=== PATIENT | female | born 2000 | race Caucasian/White ===

== ENCOUNTER 2019-12-13 02:40 | Emergency (ER) | payer OTHER, SELFPAY ==
--- NOTE | ~2019-12-13 | XR_ITS ---
XR ankle RT min 3V DATE: 12/13/2019 03:06 INDICATION: Pain and swelling after falling downstairs TECHNIQUE: 3 views COMPARISON: None FINDINGS: There is prominent lateral soft tissue swelling of the ankle. Os subfibular artery is noted . No fracture or dislocation of the ankle or disruption of the ankle mortise is detected. IMPRESSION: Lateral soft tissue swelling Reviewed, dictated and finalized at location A.
[2019-12-13 02:45] VITALS: BP 127/82; PULSE 102; RESP 18; TEMP 36.7; O2SAT 98
--- NOTE | 2019-12-13 02:56 | ED_ITS ---
HPI - Extremity Injury (Lower) General Chief Complaint: Extremity Injury, Lower Stated Complaint: ankle pain Time Seen by Provider: 12/13/19 02:52 History of Present Illness HPI Narrative: 19 yo female presents from home for an ankle injury. About 1 hour ago she was going down the stairs when she slipped and twisted her right ankle. She had instant pain in the lateral ankle. She tried ice, ibuprofen and elevation without relief. The ankle continued to swell so she decided to come have it evaluated. Related Data Allergies Allergy/AdvReac Type Severity Reaction Status Date / Time No Known Allergies Allergy Mild Unverified 12/07/08 18:06 No Known Allergies Allergy Mild Uncoded 12/23/18 11:14 Review of Systems Review of Systems: All systems reviewed & are unremarkable except as noted in HPI and below [facility] Social History Social History Smoking status: Never smoker Exam Const: General: healthy appearing, no acute distress and alert Orientation/consciousness: patient oriented x3 HENMT: Head: normal to inspection Resp: Effort & Inspection: normal respiratory effort Cardio: Other: 2+ right DP and PT pulses Neuro: General: patient oriented x3 and moves all extremities Speech: normal speech Other: Distal motor and sensory intact Extrem: Other: Swelling and tenderness over the right lateral malleolus Course Vital Signs Vital signs: Vital Signs Temperature 36.7 C 12/13/19 02:45 Pulse Rate 102 H 12/13/19 02:45 Respiratory Rate 18 12/13/19 02:45 Blood Pressure 127/82 12/13/19 02:45 Pulse Oximetry 98 12/13/19 02:45 Temperature 36.7 C 12/13/19 02:45 Pulse Rate 102 H 12/13/19 02:45 Respiratory Rate 18 12/13/19 02:45 Blood Pressure 127/82 12/13/19 02:45 Pulse Oximetry 98 12/13/19 02:45 Procedures Orthopedic Splinting/Casting Injury #1: Splinting/Casting Date: 12/13/19 Side: right Lower Extremity Injury Location: ankle Splint: customized in ED OCL: short leg Pre-Procedure Neuro Vascular Exam: normal Post-Procedure Neuro Vascular Exam: normal Other Orthopedic Equipment: crutches MDM - Extremity Injury (Lower) Differential Diagnosis Differential diagnosis: Likely ankle sprain and strain and ankle fracture Medical Records Attestation: I reviewed the patient's medical records. Imaging Data Attestation: I personally reviewed and interpreted this imaging study as follows: My impression: Avulsion fracture of the tip of the lateral condyle Discharge Plan Discharge Clinical Impression: Ankle fracture Qualifiers: Encounter type: initial encounter Fracture type: closed Laterality: right Qualified Code(s): S82.891A - Other fracture of right lower leg, initial encounter for closed fracture Patient Disposition: Home, Self-Care Condition: Stable Instructions: Ankle Fracture (ED) Follow-up/Referrals: Sandra Claire MD [Primary Care Provider] - Genaro Alexander MD [Physician] -
[2019-12-13 04:10] VITALS: BP 121/77; PULSE 85; RESP 16; O2SAT 99
== END 2019-12-13 04:10 | disposition home or self-care (01) ==
PROVIDERS: Emergency Provider Emergency Medicine; PCP Pediatrics
DX: S82.891A Other fracture of right lower leg, initial encounter for closed fracture (principal); X50.9XXA Other and unspecified overexertion or strenuous movements or postures, initial encounter; W10.9XXA Fall (on) (from) unspecified stairs and steps, initial encounter
CPT/HCPCS: 29515; 73610; 99284

== ENCOUNTER 2020-08-31 18:39 | Emergency (ER) | payer OTHER, SELFPAY ==
--- NOTE | ~2020-08-31 | XR_ITS ---
EXAMINATION: XR chest 2V EXAM DATE: 08/31/2020 19:16 INDICATION: Shortness of breath. TECHNIQUE: Frontal and lateral projections of the chest obtained and reviewed. Comparison is made to prior examination from 01/01/2016. FINDINGS: The lungs are clear. There are no pleural effusions. The cardiomediastinal silhouette is within normal limits. There is no pneumothorax suspected. The bones and soft tissues are unremarkab le. IMPRESSION: No acute cardiopulmonary findings. Reviewed, dictated and finalized at location A.
[2020-08-31 18:44] VITALS: BP 125/85; PULSE 96; RESP 14; TEMP 36.7; O2SAT 98
--- NOTE | 2020-08-31 18:47 | ECG_ITS ---
Measurements Intervals [place] Rate: 100 P: 21 WA: 128 QRS: 53 QRSD: 79 T: 17 QT: 330 QTc: 426 Interpretive Statements SINUS TACHYCARDIA BORDERLINE ECG Electronically Signed On 08-31-2020 20:37:31 CDT by Choco Colmenares D.O.
[2020-08-31 19:12] LABS: Basophils Absolute Auto 0.1 K/mm3 (0.0-0.1); Basophils Percent Auto 0.5 % (0.2-1.2); Eosinophils Absolute Auto 0.1 K/mm3 (0-0.3); Eosinophils Percent Auto 1.4 % (0-4.4); Hematocrit 42.7 % (37.0-47.0); Hemoglobin 14.3 g/dL (12.0-15.0); Immature Granulocyte Absolute 0.03 K/mm3 (0.00-0.031); Immature Granulocyte Percent A 0.3 % (0-0.5); Lymphocytes Absolute Auto 1.72 K/mm3 (0.9-3.2); Lymphocytes Percent Auto 17.4 % (18.3-44.2); Mean Corpuscular HGB Conc 33.5 g/dl (32-36); Mean Corpuscular Hemoglobin 31.8 pg (26-34); Mean Corpuscular Volume 95.1 fl (80-100); Mean Platelet Volume 10.7 fl (7.4-10.4); Monocytes Absolute Auto 0.7 K/mm3 (0.1-0.6); Monocytes Percent Auto 6.9 % (2.6-8.5); Neutrophils Absolute Auto 7.3 K/mm3 (1.3-6.7); Neutrophils Percent Auto 73.5 % (45.5-73.1); Platelet Count Result 281 k/mm3 (150-375); Red Blood Count 4.49 M/mm3 (4.2-5.4); Red Cell Distribution Width 12.5 % (11.5-14.5); White Blood Count 9.9 K/mm3 (4.5-10.0)
[2020-08-31 19:20] LABS: Anion Gap 9 mmol/L (8-16); Blood Urea Nitrogen 7 mg/dL (7-17); Calcium 10.1 mg/dL (8.4-10.2); Carbon Dioxide 24 mmol/L (22-30); Chloride 107 mmol/L (98-107); Estimated CRCL calculation 101 ml/min; Estimated Glomerular Filt Rate > 60; Glucose 97 mg/dL (65-105); Potassium 3.8 mmol/L (3.4-5.0); Sodium 140 mmol/L (137-145)
[2020-08-31 19:55] VITALS: BP 115/94; PULSE 99; RESP 16; O2SAT 99
[2020-08-31 19:56] VITALS: PULSE 98; O2SAT 98
[2020-08-31 21:03] VITALS: BP 115/83; PULSE 96; RESP 16; O2SAT 99
[2020-08-31 21:37] LABS: NT Pro B Type Natriuretic Pept 81 pg/mL (5-100)
[2020-08-31 22:07] LABS: D Dimer 0.27 ug/mL (<0.48)
[2020-08-31 22:12] VITALS: BP 125/92; PULSE 76; RESP 16; O2SAT 98
[2020-08-31 22:17] LABS: Troponin I < 0.012 ng/mL (0.000-0.034)
[2020-08-31 22:44] LABS: Troponin I < 0.012 ng/mL (0.000-0.034)
[2020-08-31 22:49] LABS: Add Urine Microscopic? YES; Appearance Urine Cloudy (Clear); Bacteria Urine Trace /hpf; Bilirubin Urine Negative (Negative); Blood Urine 1+ (Negative); Color Urine Yellow (Yellow); Glucose Urine UA Negative (Negative); Ketones Urine Negative (Negative); Leukocyte Esterase Ur Negative LEU/UL (Negative); Mucus Urine Rare /lpf; Nitrate Urine Negative (Negative); Protein Urine Negative (Negative); RBC Urine 0-2 /hpf (0-2); Specific Grav Ur 1.013 (1.001-1.035); Squamous Epithelial Cell Urine Many /hpf (Few); Urobilinogen Urine Negative mg/dL (<2.0); WBC Urine 0-3 /hpf
--- NOTE | 2020-08-31 23:47 | ED.GENADULT ---
HPI - General Adult General Chief complaint: Shortness of Breath/Dyspnea Stated complaint: SOB, racing heart Time Seen by Provider: 08/31/20 20:30 Source: patient History of Present Illness HPI narrative: Patient is a 20 y/o female complaining of moderate SOB since yesterday. She states that laying down seems to worsen her SOB. She has some chest pressure. She has no fever or cough. Related Data Allergies Allergy/AdvReac Type Severity Reaction Status Date / Time No Known Allergies Allergy Mild Unverified 12/07/08 18:06 No Known Allergies Allergy Mild Uncoded 12/23/18 11:14 Review of Systems Constitutional: Constitutional: Denies chills, Denies fever(s), Denies headache(s) and Denies weakness Eyes: Eyes: Denies blurry vision ENT: Denies headache(s) and Denies neck pain Cardiovascular: Cardiovascular: Reports chest pain and Reports dyspnea Respiratory: Respiratory: Denies cough and Reports dyspnea Gastrointestinal: Gastrointestinal: Denies abdominal pain, Denies diarrhea, Denies nausea and Denies vomiting Genitourinary: Genitourinary: Denies hematuria and Denies dysuria Musculoskeletal: Musculoskeletal: Denies back pain and Denies neck pain Neurologic: Denies headache(s) and Denies weakness [facility] Social History Social History Smoking status: Never smoker Exam Const: General: no acute distress and well developed Orientation/consciousness: oriented to person, oriented to place, oriented to time and patient oriented x3 HENMT: Head: normocephalic Ears: external ears normal General nose exam: Normal external nose present Eyes: General: appearance normal, both eyes and all related structures Conjunctivae: conjunctivae normal Neck: Neck: normal visual inspection and full ROM Chest: Chest palpation & inspection: normal inspection of the chest and no tenderness Resp: Effort & Inspection: normal respiratory effort Auscultation: clear to auscultation bilaterally Cardio: Rate: regular rate Rhythm: regular rhythm GI: GI Palp: No abdominal tenderness and Yes Soft to palpation Skin: General skin exam: normal color and turgor normal Neuro: General: oriented to person, oriented to place, oriented to time and patient oriented x3 Cognition (Neuro): normal cognition Extrem: General: normal to inspection, full ROM and no pedal edema Psych: Appearance: grossly normal Mental Status: mental status grossly normal Affect: normal affect Course Vital Signs Vital signs: Vital Signs Temperature 36.7 C 08/31/20 18:44 Pulse Rate 96 08/31/20 18:44 Respiratory Rate 14 08/31/20 18:44 Blood Pressure 125/85 08/31/20 18:44 Pulse Oximetry 98 08/31/20 18:44 Temperature 36.7 C 08/31/20 18:44 Pulse Rate 93 08/31/20 23:59 Respiratory Rate 16 08/31/20 23:59 Blood Pressure 116/96 H 08/31/20 23:59 Pulse Oximetry 96 08/31/20 23:59 Medical Decision Making Vital Signs Vital Signs: Vital Signs Temperature 36.7 C 08/31/20 18:44 Pulse Rate 96 08/31/20 18:44 Respiratory Rate 14 08/31/20 18:44 Blood Pressure 125/85 08/31/20 18:44 Pulse Oximetry 98 08/31/20 18:44 Temperature 36.7 C 08/31/20 18:44 Pulse Rate 93 08/31/20 23:59 Respiratory Rate 16 08/31/20 23:59 Blood Pressure 116/96 H 08/31/20 23:59 Pulse Oximetry 96 08/31/20 23:59 Lab Data Result diagrams: 08/31/20 18:58 08/31/20 18:58 Labs: Lab Results 08/31/20 08/31/20 08/31/20 Range/Units 18:58 18:58 19:04 WBC 9.9 (4.5-10.0) K/mm3 RBC 4.49 (4.2-5.4) M/mm3 Hgb 14.3 (12.0-15.0) g/dL Hct 42.7 (37.0-47.0) % MCV 95.1 (80-100) fl MCH 31.8 (26-34) pg MCHC 33.5 (32-36) g/dl RDW 12.5 (11.5-14.5) % Plt Count 281 (150-375) k/mm3 MPV 10.7 H (7.4-10.4) fl Immature Gran % (Auto) 0.3 (0-0.5) % Neut % (Auto) 73.5 H (45.5-73.1) % Lymph % (Auto) 17.4 L (18.3-44.2
[2020-08-31 23:59] VITALS: BP 116/96; PULSE 93; RESP 16; O2SAT 96
== END 2020-09-01 | disposition home or self-care (01) ==
PROVIDERS: Emergency Provider Emergency Medicine
DX: R06.02 Shortness of breath (principal); R07.9 Chest pain, unspecified
CPT/HCPCS: 36415; 71046; 80048; 81001; 83880; 84484; 85025; 85380; 93005; 99284